=== PATIENT | male | born 1970 | race Two or more races ===

== ENCOUNTER 2022-05-22 20:47 | Emergency (ER) | payer OTHER ==
[~2022-05-22] VITALS: Ht 182.9 cm; Wt 117.9 kg
[2022-05-22] MEDS ORDERED: LEVOTHYROXINE25 MCG PO (20:54)
[2022-05-22] MEDS ORDERED: VASOTEC20 M1 PO (20:55)
[2022-05-22] MEDS ORDERED: ELIQUIS5 M1 PO (20:55)
[2022-05-22] MEDS ORDERED: HUMALOG100 UNIT/1 (20:56)
[2022-05-22] MEDS ORDERED: METFORMIN HCL500 MG (20:56)
[2022-05-22] MEDS ORDERED: TOPROL XL25 M1 PO (20:56)
[2022-05-22] MEDS ORDERED: KRISTALOSE10 GM PO (20:57)
[2022-05-22] MEDS ORDERED: METAXALONE800 MG PO (23:43)
[2022-05-22] MEDS ORDERED: CELEBREX200MG PO (23:43)
== END 2022-05-23 00:09 | disposition home or self-care (01) ==
LOC: ER 20:47
DX: M94.0 Chondrocostal junction syndrome [Tietze] (principal); R07.89 Other chest pain

== ENCOUNTER 2023-04-29 13:52 | Emergency (ER) | payer OTHER ==
[~2023-04-29] VITALS: Ht 182.9 cm; Wt 122.5 kg
[~2023-04-29 13:52] MED LIST: CELEBREX200MG PO; ELIQUIS5 M1 PO; HUMALOG100 UNIT/1; KRISTALOSE10 GM PO; LEVOTHYROXINE25 MCG PO; METAXALONE800 MG PO; METFORMIN HCL500 MG; TOPROL XL25 M1 PO; VASOTEC20 M1 PO
[2023-04-29] MEDS ORDERED: KETOROLAC TROMETHAMINE 30 MG VIAL IM STA (15:54)
[2023-04-29] MEDS ORDERED: ORPHENADRINE CITRATE 30 MG/ML AMPUL IM STA (16:01)
== END 2023-04-29 17:13 | disposition home or self-care (01) ==
LOC: ER 13:53
DX: M54.31 Sciatica, right side (principal)

== ENCOUNTER 2023-09-18 13:03 | Emergency (ER) | payer OTHER ==
[~2023-09-18] VITALS: Ht 182.9 cm; Wt 117.9 kg
[2023-09-18 15:43] LABS: HEMATOCRIT 41.9 % (39.0-48.0); HEMOGLOBIN 14.2 g/dL (13-16.00); MEAN CELL VOLUME 80.8 fL (80.0-100.00); MEAN CORPUSCULAR HEMOGLOBIN 27.3 pg (27.00-32.0); MEAN CORPUSCULAR HGB CONC 33.8 g/dl (32.0-36.0); PLATELET COUNT 246 K/uL (150-450); RED BLOOD COUNT 5.19 M/uL (4.00-6.00); RED CELL DISTRIBUTION WIDTH 16.1 % (11.5-14.5)
[2023-09-18] MEDS ORDERED: CEFTRIAXONE SODIUM 1,000 MG VIAL IM STA (17:00)
[2023-09-18] MEDS ORDERED: KETOROLAC TROMETHAMINE 30 MG VIAL IM STA (17:02)
[2023-09-18] MEDS ORDERED: METHYLPREDNISOLONE SOD SUCC 125 MG VIAL IM STA (17:02)
[2023-09-18] MEDS ORDERED: GUAIFENESIN 200 MG/10 ML BLIST.PACK PO STA (17:03)
[2023-09-18] MEDS ORDERED: CEFTRIAXONE SODIUM 1,000 MG VIAL ONE (17:29)
[2023-09-18] MEDS ORDERED: METHYLPREDNISOLONE SOD SUCC 125 MG VIAL ONE (17:29)
[2023-09-18] MEDS ORDERED: GUAIFENESIN 200 MG/10 ML BLIST.PACK PO ONE (17:30)
[2023-09-18] MEDS ORDERED: LIDOCAINE HCL 1% 10ML VIAL ONE (17:32)
== END 2023-09-18 17:55 | disposition home or self-care (01) ==
LOC: ER 13:05
PROVIDERS: General Practice
DX: J06.9 Acute upper respiratory infection, unspecified (principal); Z20.822 Contact with and (suspected) exposure to COVID-19; E11.9 Type 2 diabetes mellitus without complications; Z79.4 Long term (current) use of insulin

== ENCOUNTER 2024-06-15 14:44 | Inpatient (IN) | payer OTHER ==
[~2024-06-15] VITALS: Ht 182.9 cm; Wt 127.0 kg
[2024-06-15] MEDS ORDERED: DILTIAZEM HCL 25 MG/5 ML VIAL IV ONE ×2 (16:09→16:15)
[2024-06-15] MEDS ORDERED: 0.9 % SODIUM CHLORIDE 1,000 ML IV SCH (16:15)
[2024-06-15] MEDS ORDERED: DILTIAZEM HCL 125 MG in 0.9 % SODIUM CHLORIDE 125 ML IV SCH (16:30)
[2024-06-15 16:32] LABS: HEMATOCRIT 50.2 % (39.0-48.0); HEMOGLOBIN 16.6 g/dL (13-16.00); MEAN CELL VOLUME 82.7 fL (80.0-100.00); MEAN CORPUSCULAR HEMOGLOBIN 27.4 pg (27.00-32.0); MEAN CORPUSCULAR HGB CONC 33.2 g/dl (32.0-36.0); PLATELET COUNT 239 K/uL (150-450); RED BLOOD COUNT 6.07 M/uL (4.00-6.00); RED CELL DISTRIBUTION WIDTH 16.3 % (11.5-14.5)
[2024-06-15 16:52] LABS: INR 1.13; PARTIAL THROMBOPLASTIN TIME 31.1 SECONDS (22.0-34.0); PROTHROMBIN TIME 12.2 SECONDS (9.0-11.5)
[2024-06-15 16:58] LABS: COVID-19 AG NEGATIVE (NEGATIVE)
[2024-06-15 17:06] LABS: ALBUMIN 4.3 gm/dL (3.4-5.0); BILIRUBIN TOTAL 1.18 mg/dL (0.3-1.2); CALCIUM 9.6 mg/dL (8.5-10.1); CREATININE SERUM 0.98 mg/dL (0.70-1.30); GFR 79.12; GLOBULINA 3.7 G/DL (2.4-3.5); POTASSIUM 4.73 mEq/L (3.5-5.1)
--- NOTE | 2024-06-15 17:14 | NUR ---
SE RECIBE PTE ALERTA Y ORIENTADO X3 AMBULANDO A UNIDAD DE CRITICO CON QUEJA PRINCIPAL DE PALPITACIONES Y MALESTAR EN PECHO. SE HACE ENTREGA DE EKG PREVIAMENTE REALIZADO Y PRESENTADO AL DR. GARCIA QUIEN EVALUA PTE Y REALIZA ORDENES. SE CANALIZA X2 EN BRAZO DERECHO CON ANGIOS #20 Y #18, LOS CUALES ESTAN PATENTES, LIBRES DE EDEMA Y ERITEMA, SE ALENA MUESTRAS DE LABORATORIO Y SE ADEMINISTRA MEDICAMENTO Y IV FLUIDS JUSTINO ORDEN MEDICA Y BAJO MEDIDAS ASEPTICAS. PTE TOELRA Y NO PRESENTA REACCION ADVERSA. LUEGO DE UNOS MINUTOS PTE NO CORRIJE, DE MODO QUE DR. GARCIA REALIZA ORDEN MEDICA, LA CUAL SE EJECUTA Y SE ADMINISTRA MEDICAMENTO. PTE CONECTADO A MONITOR CARDIACO Y OXIMETRIA DE PULSO CONTINUA, SE COLOCA CANULA NASAL A 3 LT/MIN. SE MANTIENE BAJO OBSERVACION EN ESPERA DE CAMBIOS EN TRATAMIENTO MEDICO.
[2024-06-15 17:30] LABS: INFLUENZA A AG NEGATIVE (NEGATIVE)
[2024-06-15 19:00] VITALS: BP 104/77; O2SAT 94
[2024-06-15] MEDS ORDERED: FUROsemide 40 MG/4 ML VIAL ONE (19:10)
[2024-06-15] MEDS ORDERED: IPRATROPIUM BROMIDE 0.5 MG/2.5 ML AMPUL.NEB IH SCH (19:15)
[2024-06-15] MEDS ORDERED: METHYLPREDNISOLONE SOD SUCC 125 MG VIAL IV ONE (19:15)
[2024-06-15] MEDS ORDERED: FUROsemide 40 MG/4 ML VIAL IV ONE (19:15)
[2024-06-15] MEDS ORDERED: LEVALBUTEROL HCL 1.25 MG/3 ML SOLUTION IH SCH (19:15)
[2024-06-15] MEDS ORDERED: APIXABAN 5 MG TABLET PO SCH (19:16)
[2024-06-15] MEDS ORDERED: WATER FOR INJ.,BACTERIOSTATIC 30 ML VIAL IJ ONE (19:25)
[2024-06-15] MEDS ORDERED: METHYLPREDNISOLONE SOD SUCC 125 MG VIAL ONE (19:25)
[2024-06-15] MEDS ORDERED: DEXTROSE 50 % IN WATER 0.5 G/ML DISP.SYRIN IV PRN (19:30)
[2024-06-15] MEDS ORDERED: ACETAMINOPHEN 500 MG GEL..CAP PO PRN (19:30)
[2024-06-15] MEDS ORDERED: INSULIN LISPRO 1,000 UNIT/10 ML UNITS SUBCUTANEO PRN (19:30)
[2024-06-15] MEDS ORDERED: DEXTROSE 50 % IN WATER 0.5 G/ML VIAL IV PRN (19:45)
[2024-06-15 20:00] VITALS: BP 110/67; O2SAT 96
[2024-06-15] MEDS ORDERED: IPRATROPIUM BROMIDE 0.5 MG/2.5 ML AMPUL.NEB IH ONE (20:16)
[2024-06-15] MEDS ORDERED: LEVALBUTEROL HCL 1.25 MG/3 ML SOLUTION IH ONE (20:16)
[2024-06-15 21:00] VITALS: BP 102/74; O2SAT 97
[2024-06-15] MEDS ORDERED: DEXTROSE 50 % IN WATER 0.5 G/ML VIAL IV ONE (21:52)
[2024-06-15 22:00] VITALS: BP 120/76; O2SAT 96
[2024-06-15 22:00] LABS: URINE APPEARANCE Clear; URINE BILIRRUBIN Negative (NEGATIVE); URINE BLOOD Negative; URINE COLOR Dark Yellow; URINE KETONE Trace (NEGATIVE); URINE LEUKOCYTE Negative; URINE NITRATE Negative; URINE PROTEIN Negative (NEGATIVE)
[2024-06-15 22:04] LABS: URINE BACTERIA 75.8 uL (0.0-1933)
[2024-06-15 22:12] LABS: URINE CAST 0.44 uL (0.0-1.40); URINE GLUCOSE 500 MG/DL (NEGATIVE); URINE RBC 1.6 uL (0.0-20.8)
[2024-06-15 22:15] LABS: ABG PH 7.423 (7.35-7.45); ABG pCO2 32.4 mmHg (35-45); BASE EXCESS -2.7 mmol/l; BICARBONATE 20.7 mmol/l (23-25); SaO2 93.6 %; Tco2 21.7 mmol/l; allen test SATISFACTORY; mode ROOM AIR; o2 21 %; puncture site RADIAL LEFT
[2024-06-15 22:16] LABS: ABG PO2 68.1 mmHg (80-100)
[2024-06-15 23:17] VITALS: BP 132/79; O2SAT 96
[2024-06-16] VITALS (15 sets, daily range): BP systolic 91–121; BP diastolic 64–90; O2SAT 94–100
[2024-06-16] MEDS ORDERED: FUROsemide 20 MG/2 ML VIAL IV SCH (01:00)
[2024-06-16] MEDS ORDERED: LEVOTHYROXINE SODIUM 125 MCG TABLET PO SCH (06:00)
[2024-06-16 07:25] LABS: CHOL HDL RATIO 3.9 (0-5.0)
[2024-06-16] MEDS ORDERED: FAMOTIDINE/PF 20 MG in 0.9 % SODIUM CHLORIDE 8 ML IV PUSH SCH (09:00)
[2024-06-16] MEDS ORDERED: AZITHROMYCIN 500 MG VIAL IV SCH (10:54)
[2024-06-16] MEDS ORDERED: METHYLPREDNISOLONE SOD SUCC 40 MG VIAL IV SCH (10:58)
[2024-06-16] MEDS ORDERED: INSULIN GLARGINE,HUM.REC.ANLOG 1,000 UNITS/10 ML UNITS SUBCUTANEO STA ×2 (11:21→21:45)
[2024-06-16] MEDS ORDERED: CEFTRIAXONE SODIUM 2,000 MG in 0.9 % SODIUM CHLORIDE 100 ML IV SCH (12:00)
[2024-06-16] MEDS ORDERED: INSULIN LISPRO 1,000 UNIT/10 ML UNITS SUBCUTANEO SCH (12:00)
[2024-06-16 12:25] LABS: TSH 0.984 uIU/mL (0.358-3.74)
[2024-06-16] MEDS ORDERED: INSULIN LISPRO 1,000 UNIT/10 ML UNITS SUBCUTANEO ONE ×3 (12:56→21:37)
[2024-06-16] MEDS ORDERED: INSULIN GLARGINE,HUM.REC.ANLOG 1,000 UNITS/10 ML UNITS SUBCUTANEO ONE ×2 (12:56→22:18)
[2024-06-16] MEDS ORDERED: BENZONATATE 200 MG CAPSULE PO SCH (13:00)
[2024-06-16] MEDS ORDERED: LINEZOLID IN DEXTROSE 5% 600 MG/300 ML PIGGYBAG IV STA (15:58)
[2024-06-16] MEDS ORDERED: AMIODARONE HCL 900 MG in DEXTROSE 5 % IN WATER 500 ML IV SCH ×2 (17:00→23:00)
[2024-06-16] MEDS ORDERED: LACTOBACILLUS ACIDOPHILUS 1 CAP CAP PO SCH (17:00)
[2024-06-16 17:18] LABS: MYCOPLASMA PNEUMONIAE IGM NON REACTIVE (NO REACTIVE)
[2024-06-16] MEDS ORDERED: FLUTICASONE PROPIONATE 50 MCG SPRAY NASAL SCH (21:00)
[2024-06-16] MEDS ORDERED: LORATADINE 10 MG TABLET PO SCH (21:00)
[2024-06-17] VITALS (19 sets, daily range): BP systolic 106–135; BP diastolic 66–91; O2SAT 94–98
[2024-06-17] MEDS ORDERED: INSULIN LISPRO 1,000 UNIT/10 ML UNITS SUBCUTANEO ONE ×3 (01:09→16:30)
[2024-06-17] MEDS ORDERED: LINEZOLID IN DEXTROSE 5% 300 ML IV SCH (05:00)
[2024-06-17] MEDS ORDERED: INSULIN LISPRO 1,000 UNIT/10 ML UNITS SUBCUTANEO SCH (08:00)
[2024-06-17] MEDS ORDERED: INSULIN GLARGINE,HUM.REC.ANLOG 1,000 UNITS/10 ML UNITS SUBCUTANEO SCH ×2 (09:00→21:00)
[2024-06-17] MEDS ORDERED: AMIODARONE HCL 900 MG in DEXTROSE 5 % IN WATER 500 ML IV SCH (15:45)
[2024-06-17] MEDS ORDERED: METOLAZONE 5 MG TABLET PO STA (18:12)
[2024-06-17] MEDS ORDERED: INSULIN GLARGINE,HUM.REC.ANLOG 1,000 UNITS/10 ML UNITS SUBCUTANEO ONE (20:58)
[2024-06-18] VITALS (15 sets, daily range): BP systolic 86–134; BP diastolic 64–90; O2SAT 94–100
[2024-06-18] MEDS ORDERED: INSULIN LISPRO 1,000 UNIT/10 ML UNITS SUBCUTANEO SCH ×2 (08:00→17:00)
[2024-06-18] MEDS ORDERED: INSULIN GLARGINE,HUM.REC.ANLOG 1,000 UNITS/10 ML UNITS SUBCUTANEO SCH (09:00)
[2024-06-18] MEDS ORDERED: METOPROLOL SUCCINATE 50 MG TAB.SR.24H PO SCH (09:00)
[2024-06-18] MEDS ORDERED: INSULIN LISPRO 1,000 UNIT/10 ML UNITS SUBCUTANEO ONE ×3 (10:05→17:16)
[2024-06-18] MEDS ORDERED: INSULIN GLARGINE,HUM.REC.ANLOG 1,000 UNITS/10 ML UNITS SUBCUTANEO ONE (10:08)
[2024-06-18] MEDS ORDERED: LINEZOLID 600 MG TABLET PO SCH ×2 (17:00→21:00)
[2024-06-18] MEDS ORDERED: INSULIN REGULAR, HUMAN 1,000 UNIT/10 ML UNITS ONE (20:54)
[2024-06-18] MEDS ORDERED: AMIODARONE HCL 200 MG TABLET PO SCH (21:48)
[2024-06-18] MEDS ORDERED: METOPROLOL TARTRATE 25 MG TABLET PO SCH (21:49)
[2024-06-19 06:47] LABS: HEMATOCRIT 46.7 % (39.0-48.0); HEMOGLOBIN 15.4 g/dL (13-16.00); MEAN CELL VOLUME 81.8 fL (80.0-100.00); MEAN CORPUSCULAR HEMOGLOBIN 26.9 pg (27.00-32.0); MEAN CORPUSCULAR HGB CONC 32.8 g/dl (32.0-36.0); PLATELET COUNT 412 K/uL (150-450); RED BLOOD COUNT 5.71 M/uL (4.00-6.00); RED CELL DISTRIBUTION WIDTH 16.1 % (11.5-14.5)
[2024-06-19 07:01] LABS: ERYTHROCYTE SEDIMENTATION RATE 19 mm/hr
[2024-06-19 07:10] LABS: ALBUMIN 3.6 gm/dL (3.4-5.0); BILIRUBIN TOTAL 0.96 mg/dL (0.3-1.2); CALCIUM 9.3 mg/dL (8.5-10.1); CREATININE SERUM 1.47 mg/dL (0.70-1.30); GFR 49.55; GLOBULINA 3.5 G/DL (2.4-3.5); MAGNESIUM 2.9 mg/dL (1.8-2.4); PHOSPHOROUS 6.6 mg/dL (2.5-4.9); POTASSIUM 4.39 mEq/L (3.5-5.1); TOTAL PROTEIN 7.1 gm/dL (6.4-8.2)
[2024-06-19 07:13] LABS: C-REACTIVE PROTEIN 0.68 MG/DL (0.00-0.29)
[2024-06-19 07:29] VITALS: BP 109/88; O2SAT 99
[2024-06-19] MEDS ORDERED: AZITHROMYCIN 500 MG VIAL IV ONE (07:59)
[2024-06-19 12:16] VITALS: BP 109/82; O2SAT 100
[2024-06-19 15:39] VITALS: BP 99/82; O2SAT 98
[2024-06-19 19:15] VITALS: BP 120/77; O2SAT 100
[2024-06-19] MEDS ORDERED: INSULIN GLARGINE,HUM.REC.ANLOG 1,000 UNITS/10 ML UNITS SUBCUTANEO SCH (21:00)
[2024-06-19 23:00] VITALS: O2SAT 100
[2024-06-20 02:48] VITALS: BP 114/76; O2SAT 98
[2024-06-20 06:14] VITALS: O2SAT 89
[2024-06-20 08:55] VITALS: BP 90/60; O2SAT 99
[2024-06-20] MEDS ORDERED: AZITHROMYCIN 500 MG VIAL IV ONE (08:55)
[2024-06-20] MEDS ORDERED: FUROsemide 20 MG/2 ML VIAL IV SCH (09:00)
[2024-06-20] MEDS ORDERED: INSULIN GLARGINE,HUM.REC.ANLOG 1,000 UNITS/10 ML UNITS SUBCUTANEO SCH (09:58)
[2024-06-20 10:13] VITALS: O2SAT 94
[2024-06-20] MEDS ORDERED: INSULIN LISPRO 1,000 UNIT/10 ML UNITS SUBCUTANEO SCH (12:00)
[2024-06-20 13:22] VITALS: O2SAT 99
[2024-06-20 18:33] VITALS: BP 132/92
[2024-06-21] VITALS (8 sets, daily range): BP systolic 117–148; BP diastolic 80–110; O2SAT 86–100
[2024-06-21] MEDS ORDERED: INSULIN LISPRO 1,000 UNIT/10 ML UNITS SUBCUTANEO SCH (08:14)
[2024-06-21] MEDS ORDERED: AZITHROMYCIN 500 MG VIAL IV ONE (09:08)
[2024-06-21 23:26] LABS: HEMATOCRIT 51.2 % (39.0-48.0); MEAN CELL VOLUME 82.1 fL (80.0-100.00); MEAN CORPUSCULAR HEMOGLOBIN 27.3 pg (27.00-32.0); MEAN CORPUSCULAR HGB CONC 33.2 g/dl (32.0-36.0); PLATELET COUNT 400 K/uL (150-450); RED BLOOD COUNT 6.24 M/uL (4.00-6.00); RED CELL DISTRIBUTION WIDTH 15.8 % (11.5-14.5)
[2024-06-21 23:44] LABS: INR 1.26; PROTHROMBIN TIME 13.5 SECONDS (9.0-11.5)
[2024-06-22 00:03] LABS: ALBUMIN 3.7 gm/dL (3.4-5.0); BILIRUBIN TOTAL 0.85 mg/dL (0.3-1.2); CALCIUM 9.6 mg/dL (8.5-10.1); CREATININE SERUM 1.31 mg/dL (0.70-1.30); GFR 56.6; GLOBULINA 3.3 G/DL (2.4-3.5); POTASSIUM 5.81 mEq/L (3.5-5.1)
[2024-06-22 01:06] VITALS: O2SAT 99
[2024-06-22 01:39] VITALS: BP 119/83; O2SAT 97
[2024-06-22 05:21] VITALS: O2SAT 96
[2024-06-22 07:00] VITALS: BP 111/75; O2SAT 96
[2024-06-22 09:53] VITALS: O2SAT 90
[2024-06-22 22:35] VITALS: BP 134/91
[2024-06-23 00:52] VITALS: O2SAT 90
[2024-06-23 02:54] VITALS: BP 103/70; O2SAT 97
[2024-06-23] MEDS ORDERED: METHYLPREDNISOLONE SOD SUCC 40 MG VIAL IV SCH (09:00)
[2024-06-23 17:55] VITALS: O2SAT 95
[2024-06-23 18:33] VITALS: BP 154/76
== END 2024-06-23 21:40 | disposition home or self-care (01) | DRG 286 ==
LOC: ER 14:44 → ICU-2 19:17 → ICU 19:17 → ICU-2 21:18 → ICU 06-18 21:50 → MEDJ 06-19 19:22
PROVIDERS: General Practice; Internal Medicine; Internal Medicine Infectious Disease; ADMIT Internal Medicine; ATTEND Internal Medicine
PROC: 5A0945A Assistance with Respiratory Ventilation, 24-96 Consecutive Hours, High Flow/Velocity Cannula (ICD-10-PCS; 2024-06-15)
PROC: BB24ZZZ Computerized Tomography (CT Scan) of Bilateral Lungs (ICD-10-PCS; 2024-06-15)
PROC: 4A12X4Z Monitoring of Cardiac Electrical Activity, External Approach (ICD-10-PCS; 2024-06-15)
PROC: B246ZZZ Ultrasonography of Right and Left Heart (ICD-10-PCS; 2024-06-16)
PROC: 4A023N7 Measurement of Cardiac Sampling and Pressure, Left Heart, Percutaneous Approach (ICD-10-PCS; principal; 2024-06-22)
DX: I11.0 Hypertensive heart disease with heart failure (principal); I50.23 Acute on chronic systolic (congestive) heart failure; J18.1 Lobar pneumonia, unspecified organism; I48.20 Chronic atrial fibrillation, unspecified; J90 Pleural effusion, not elsewhere classified; I25.10 Atherosclerotic heart disease of native coronary artery without angina pectoris; I27.21 Secondary pulmonary arterial hypertension; E11.65 Type 2 diabetes mellitus with hyperglycemia; E03.9 Hypothyroidism, unspecified; G47.33 Obstructive sleep apnea (adult) (pediatric); E78.5 Hyperlipidemia, unspecified; Z79.84 Long term (current) use of oral hypoglycemic drugs; Z79.4 Long term (current) use of insulin; Z98.61 Coronary angioplasty status; F17.200 Nicotine dependence, unspecified, uncomplicated

== ENCOUNTER 2024-10-13 20:13 | Emergency (ER) | payer OTHER ==
[~2024-10-13] VITALS: Ht 182.9 cm; Wt 127.0 kg
[2024-10-13] MEDS ORDERED: TRULICITY0.75 MG/0. (20:49)
[2024-10-13] MEDS ORDERED: SYNJARDY 12.5-1 EACH (20:50)
[2024-10-13] MEDS ORDERED: AMIODARONE HCL100 MG PO (20:51)
[2024-10-13] MEDS ORDERED: CEFTRIAXONE SODIUM 1,000 MG VIAL IM STA (21:57)
== END 2024-10-13 22:13 | disposition home or self-care (01) ==
LOC: ER 20:13
DX: S90.211A Contusion of right great toe with damage to nail, initial encounter (principal); X58.XXXA Exposure to other specified factors, initial encounter; Y93.89 Activity, other specified; Y92.89 Other specified places as the place of occurrence of the external cause; Y99.9 Unspecified external cause status; E11.9 Type 2 diabetes mellitus without complications; Z79.4 Long term (current) use of insulin; Z79.84 Long term (current) use of oral hypoglycemic drugs; I10 Essential (primary) hypertension